=== PATIENT | female | born 1990 | race American Indian/Alaskan Native ===

== ENCOUNTER 2017-07-18 23:54 | Emergency (ER) | payer MEDICARE, MEDICAID ==
[2017-07-19] MEDS ORDERED: Lactated Ringer's 1,000 ML IV ONE (00:26)
[2017-07-19] MEDS ORDERED: Dextrose 5%/Lactated Ringer's 1,000 ML IV SCH (00:45)
[2017-07-19 00:54] LABS: RBC URINE 1 /hpf (0-3); URINE BILIRUBIN NEGATIVE (NEGATIVE); URINE BLOOD NEGATIVE (NEGATIVE); URINE COLOR Yellow (YELLOW); URINE GLUCOSE (UA) NORMAL (Normal); URINE KETONE TRACE mg/dL (NEGATIVE); URINE LEUKOCYTE ESTERASE NEG Leu/uL (Negative); URINE PROTEIN NEGATIVE (NEGATIVE); URINE UROBILINOGEN NORMAL mg/dL (0.2-1.0); WBC URINE 1 /hpf (0-5)
--- NOTE | 2017-07-19 02:13 | OBHP ---
Datetime: 07/19/2017 00:06 IP Adm Impression: Term, intrauterine IP Chief Complaint Other: Previous section IP Admit Plan: Observation/Evaluation Admit Comment, IP Provider: 26 yo , LMP unsure, SWAPNA 08/10/17, per patient by an ultrasound at 31 weeks, EGA 36w 6d, previous and insufficient care, c/o abdominal pain, "contracti ons" since 1430 hours, while picking up her son. Took this long to come in for evaluatoin because "I had a family emergency to deal with". (+) AFM; denies LOF, VB. 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 Denies STIs PMH: denies PSH: C/S NKDA Meds: PNV - QD Soc Hx: denies illicit drug, tobacco or EtOH use. Lives in [place] with her significant othe r/FOB; tonight at his sister's house, due to his current job. Unemployed. P.E.: as above. Small, inNAD; anxious. POssible metal limitation. Awake, alert, oriented to time, person and place Assessment: 26 yo P1, prevoius C/S, insufficient care - R/O laobr; R/O UTI. CAtegory 1 tr acing . Clinically stable. Plan: 1) U/A 2) UDS Addendum: 0207 hours - S/P 2 litres IVFs: patient states she feel better; abdominal pain "better: - V.E.- no cervical change - U/A/ esentially negative; S.G> 1.016; hazy Assessment: 26 yo P1, previous C/S; not in labor. Insufficient care. Has orange folder fr [facility] - limited data. labs reviewed - negative thus far. No ultrasound report. States has appointment for Tuesday07/24/17. Asked to contact clinic in am to verify next appointment; should be this week. Plan: 1) discharge home 2) reviewed S/S labor. Pelvic Type - PN: Adequate Extremities - PN: Normal Abdomen - PN: Normal Back - PN: Normal Breast - PN: Not Done Lungs - PN: Normal Heart - PN: Normal Thyroid - PN: Not Done Neurologic - PN: Normal HEENT - PN: Normal General - PN: Normal Membranes, Provider: Intact Contraction Comments Provider: 1-2 minutes Comments, ACOG Physical Exam: Abdomen: Gravid. Firm with contractions; otherwise, soft. Healed Pfann enstiel scar with mild keloid changes. Fundal height 37 cm All other systems reviewed and are negative Gestation - Est Wks by US: 36w 6d IP Hx Assessment: No Care IP Chief Complaint: Uterine contractions Dilatation, Provider: 0 Effacement, Provider: 25 Station, Provider: high Genitourinary Exam: Normal DTRs - PN: Not Done
[2017-07-19 06:34] VITALS: BP 127/89; PULSE 105; RESP 20; TEMP 98.4
== END 2017-07-19 02:20 | disposition home or self-care (01) ==
LOC: EDBD 23:54 → C.EROB 23:54
DX: O75.89 Other specified complications of labor and delivery (principal); Z3A.36 36 weeks gestation of pregnancy
CPT/HCPCS: 72HRC; 99283

== ENCOUNTER 2017-07-19 16:37 | Inpatient (IN) | payer MEDICARE, MEDICAID ==
[2017-07-19 17:17] VITALS: BMI 23.2
[2017-07-19] MEDS ORDERED: cefOXitin IV 2 gm in Dextrose 2 GM/50 ML BAG IVPB ONE ×2 (17:17→18:22)
[2017-07-19] MEDS ORDERED: Lactated Ringer's 1,000 ML IV SCH (17:30)
[2017-07-19] MEDS ORDERED: Sodium Citrate/Citric Acid 15 ml Sol PO ONE (18:07)
[2017-07-19 18:10] LABS: BASO % 0.4 % (0.0-2.0); EOS % 0.1 % (0.0-4.0); HEMATOCRIT 45.4 % (34.0-47.0); LYMPH # 0.8 K/uL (1.0-4.3); LYMPH % 9.7 % (20.0-40.0); MEAN CELL VOLUME 87.5 fL (81.0-99.0); MEAN CORPUSCULAR HEMOGLOBIN 28.4 pg (27.0-31.0); MEAN CORPUSCULAR HGB CONC 32.4 g/dL (33.0-37.0); MEAN PLATELET VOLUME 11.4 fL (7.2-11.7); MONO # 0.4 K/uL (0.0-0.8); NRBC % 0.1 % (0.0-2.0); PLATELET COUNT 144 K/uL (130-400); RED CELL DISTRIBUTION WIDTH 13.6 % (11.5-14.5); WHITE BLOOD COUNT 8.1 K/uL (4.8-10.8)
--- NOTE | 2017-07-19 18:11 | OBHP ---
Datetime: 07/19/2017 17:56 IP Adm Impression: Term, intrauterine IP Adm Impression Other: previous csection IP Admit Plan: Admit to unit; Initiate Section protocol Admit Comment, IP Provider: chief complaint-contractions HPI 26 y/o at 38 weeks and 3 days by ultrasound done at 34 weeks as per records docu mentation here with c/o contractions.patient states that she had contractions which started at 5 pm y .she was seen in [place] and discharged home.patient states that the contractions got stronger and hence she returned back to clinic and was told to go to hospital. (+) AFM; denies LOF, VB. lasthad sexual intercourse at beginning of "8 months ago!" Patient states that she is from [facility] but moved to [place].had a baby in [place] last ear .now wants to settle in [place] and hence she trasnferreed care from [facility] in [place] to [facility] in [place].she has not been able to get insurance or medicaid as she does not have picture id cousre -limited care; ultrasound done at 34 weeks as per recorsd but no report a vailable.started care at [facility] at 28 weeks; GBS positive; no 1 hour 50 gram glucola nicolas ilable P Ob: 08/10/16, male, 5lb 3oz at 37 weeks; "placenta was low"; [facility] 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 Denies STIs PMH: denies PSH: C/S NKDA Meds: PNV - QD Soc Hx: denies illicit drug, tobacco or EtOH use. Lives in [place] with her significant othe r/FOB; tonight at his sister's house, due to his current job. Unemployed. Physical exam see exam section A/P 26 y/o at 38.3 wga with c/o contractions.limited care.no ultrasound report avail able.No pic id available with patient. -admit -routine labs. -monitor closely -prep for csection Pelvic Type - PN: Adequate Extremities - PN: Normal Abdomen - PN: Normal Back - PN: Normal Lungs - PN: Normal Heart - PN: Normal Neurologic - PN: Normal General - PN: Normal Contraction Comments Provider: irregular IP Hx Assessment: The History has been Reviewed and is Current EGA AdmitDate IP: 38.3 Vital Signs Provider: Reviewed IP Chief Complaint: Uterine contractions FHR Category Provider Fetus A: Category I Dilatation, Provider: 1-2 Effacement, Provider: 70 Station, Provider: -2 Genitourinary Exam: Normal DTRs - PN: Normal
--- NOTE | 2017-07-19 18:14 | OBADHP ---
Datetime: 07/19/2017 17:56 IP Adm Impression Other: previous csection Admit Comment, IP Provider: chief complaint-contractions HPI 26 y/o at 38 weeks and 3 days by ultrasound done at 34 weeks as per records docu mentation here with c/o contractions.patient states that she had contractions which started at 5 pm y day.she was seen in [place] and discharged home.patient states that the contractions got stronger and hence she returned back to clinic and was told to go to hospital. (+) AFM; denies YESSENIA JAMES. lasthad sexual intercourse at beginning of "8 months ago!" Patient states that she is from [facility] but moved to [place].had a baby [place] last ear .now wants to settle in [place] and hence she trasnferreed care 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 Denies STIs PMH: denies PSH: C/S NKDA Meds: PNV - QD Soc Hx: denies illicit drug, tobacco or EtOH use. Lives in [place] with her significant othe r/FOB; tonight at his sister's house, due to his current job. Unemployed. Physical exam see exam section A/P 26 y/o at 38.3 wga with c/o contractions.limited care.no ultrasound report avail able.No pic id available with patient. -admit -routine labs. -monitor closely -prep for csection Pelvic Type - PN: Adequate Extremities - PN: Normal Abdomen - PN: Normal Back - PN: Normal Lungs - PN: Normal Heart - PN: Normal Neurologic - PN: Normal General - PN: Normal Contraction Comments Provider: irregular IP Hx Assessment: The History has been Reviewed and is Current Vital Signs Provider: Reviewed IP Chief Complaint: Uterine contractions FHR Category Provider Fetus A: Category I Dilatation, Provider: 1-2 Effacement, Provider: 70 Station, Provider: -2 Genitourinary Exam: Normal DTRs - PN: Normal EGA AdmitDate IP: 38.3 IP Adm Impression: Term, intrauterine IP Admit Plan: Admit to unit; Initiate Section protocol Datetime: 07/19/2017 00:06 IP Chief Complaint Other: Previous section Breast - PN: Not Done Thyroid - PN: Not Done HEENT - PN: Normal Membranes, Provider: Intact Comments, ACOG Physical Exam: Abdomen: Gravid. Firm with contractions; otherwise, soft. Healed Pfann enstiel scar with mild keloid changes. Fundal height 37 cm All other systems reviewed and are negative Gestation - Est Wks by US: 36w 6d
[2017-07-19 18:19] LABS: RBC URINE < 1 /hpf (0-3); TRANSITIONAL EPITHIAL < 1 /hpf (0-3); URINE BILIRUBIN NEGATIVE (NEGATIVE); URINE BLOOD NEGATIVE (NEGATIVE); URINE COLOR Yellow (YELLOW); URINE GLUCOSE (UA) NORMAL (Normal); URINE KETONE 2+ mg/dL (NEGATIVE); URINE LEUKOCYTE ESTERASE NEG Leu/uL (Negative); URINE PROTEIN NEGATIVE (NEGATIVE); URINE UROBILINOGEN NORMAL mg/dL (0.2-1.0); WBC URINE 2 /hpf (0-5)
[2017-07-19] MEDS ORDERED: Midazolam 2 MG/2 ML VIAL ONE ×2 (18:21→19:49)
[2017-07-19] MEDS ORDERED: Morphine 1 mg/ml preservative-free Inj(Duramorph) ONE (18:21)
[2017-07-19] MEDS ORDERED: Oxytocin 20 units in LR 2,000 ML IV ONE (18:22)
[2017-07-19] MEDS ORDERED: Sodium Citrate/Citric Acid 15 ml Sol ONE (18:22)
[2017-07-19 18:25] LABS: CHLORIDE 103 mmol/L (98-107); POTASSIUM 3.9 mmol/L (3.6-5.2); SODIUM 139 mmol/L (132-148)
[2017-07-19 18:28] LABS: CALCIUM 10.2 mg/dl (8.6-10.4); GLUCOSE,RANDOM 85 mg/dL (65-105)
[2017-07-19 18:55] LABS: NEUTROPHIL 90 % (50-75); TOTAL CELLS COUNTED 100
[2017-07-19 18:56] LABS: ALKALINE PHOSPHATASE 162 U/L (38-126); ALT/SGPT 23 U/L (9-52); AST/SGOT 27 U/L (14-36); BILIRUBIN,TOTAL 0.8 mg/dL (0.2-1.3); BLOOD UREA NITROGEN 5 mg/dL (7-17); CARBON DIOXIDE 19 mmol/L (22-30); GFR AFRICAN-AMERICAN > 60; TOTAL PROTEIN 7.6 g/dL (6.3-8.3)
[2017-07-19] MEDS ORDERED: ePHEDrine 50 mg/ml Inj ONE (19:11)
[2017-07-19] MEDS ORDERED: DiphenhydrAMINE 50 mg/ml Inj IVP PRN (20:10)
[2017-07-19] MEDS ORDERED: Oxycodone/Acetaminophen 5/325 mg Tab PO PRN ×2 (21:23)
--- NOTE | 2017-07-19 22:27 | OBDS ---
DELIVERY PERSONNEL Delivery Doctor: Brittany Delgado MD Scrub Nurse: Latosha Ballard OBT Operations Officer Afloat: Grant Spivey RN Anesthesiologist: Johny Lord MD MATERNAL INFORMATION Delivery Anesthesia: Spinal Medications in Delivery: Pitocin Estimated Blood Loss (ml): 800 Placenta Cultured: Yes Maternal Complications: Other Other Maternal Complications: RN Comments: live baby boy born via repeat c/section with 9_9 Provider Comments: repeat csection done ebl 800cc apgasr 9/9 at 1 and 5 min of life LABOR SUMMARY EDC: 07/30/2017 00:00 No. Babies in Womb: 1 Attempted: No LABOR INFORMATION Reason for Induction: Not Applicable Group B Beta Strep: Positive Steroids Given: None Reason Steroids Not Administered: Not Applicable STAGES OF LABOR Stage 3 hrs: 0 Stage 3 min: 1 VAGINAL DELIVERY Episiotomy: None Laceration Extension: N/A Laceration Type: None CSECTION DELIVERY Primary Indication: Repeat Elective Secondary Indication: in labor CSection Urgency: Emergency CSection Incidence: Repeat Labor: No Labor Elective: Elective CSection Incision: Lower Uterine Transverse Uterine Closure: Single-layer closure BABY A INFORMATION Delivery Date/Time: 07/19/2017 19:13 Method of Delivery: Born in Route : No : N/A Forceps: N/A Vacuum Extraction: N/A Shoulder Dystocia : No SHOULDER DYSTOCIA BABY A Delivery Date/Time: 07/19/2017 19:13 PRESENTATION/POSITION BABY A Presentation: Cephalic Cephalic Presentation: Vertex Breech Presentation: N/A PLACENTA INFORMATION BABY A Placenta Delivery Time : 07/19/2017 19:14 Placenta Method of Delivery: Manual Removal Placenta Status: Delivered SCORES BABY A Heart Rate 1 min: >100 bpm Resp Effort 1 min: Good Cry Reflex Irritability 1 min: Cough or Sneeze or Pulls Away Muscle Tone 1 min: Active Motion Color 1 min: Body [place], Extremities Blue SCORE 1 MIN: 9 Heart Rate 5 min: >100 bpm Resp Effort 5 min: Good Cry Reflex Irritability 5 min: Cough or Sneeze or Pulls Away Muscle Tone 5 min: Active Motion Color 5 min: Body [place], Extremities Blue SCORE 5 MIN: 9 INFANT INFORMATION BABY A Gestational Age at Delivery: 38.3 Gestational Status: Term Outcome : Liveborn Infant Condition : Stable Infant Sex: Male IDENTIFICATION/MEDS BABY A ID Band Number: [id number] ID Band Location: Left Leg; Left Arm Sensor Applied: Yes Sensor Number: [id number] Sensor Location : Cord Clamp WEIGHT/LENGTH BABY A Birthweight (gms): 2625 Weight (lb): 5 Weight (oz): 13 Length Inches: 18.50 Infant Length cms: 47.0 CORD INFORMATION BABY A No. Cord Vessels: 3 Nuchal Cord : Around Neck x2, Loose Cord Blood Taken: Yes Suction: Mouth; Nose ASSESSMENT BABY A Complications: None Physical Findings at Delivery: Within Normal Limits Infant Respirations: Appears Normal Senior Caregiver/ALS Called : No Care By: jolene Transferred To: Remains with Mother
[2017-07-20] MEDS: cefOXitin IV 2 gm in Dextrose 2 GM/50 ML BAG IVPB SCH ×3 (03:59→20:00)
--- NOTE | 2017-07-20 05:22 | OP ---
DATE OF PROCEDURE: 07/19/2017 PREOPERATIVE DIAGNOSES: Term intrauterine with history of previous section and labor. POSTOPERATIVE DIAGNOSES: Term intrauterine with history of previous section and labor. PROCEDURE PERFORMED: Repeat lower transfer section. SURGEON: Gurdeep Delgado MD PLANT OPERATIONS COORDINATOR: Dr. Jones White. Please note that the procedure required surgical technology instructor to assist with entry into the abdominal cavity, to assist with the dissection of the tissues, to assist with the delivery of the infant and assist with the closure of the abdominal wall. The surgical technology instructor was present and scrubbed for the entire duration of the procedure. TYPE OF ANESTHESIA: Spinal. ANESTHESIOLOGIST: Dr. Hinson. COMPLICATIONS: None. FINDINGS: A male infant in vertex presentation, nuchal x2 around neck tight. Normal-appearing ovaries bilaterally. Right fallopian tube being densely adhered to the lower uterine segment. Adhesions between the right side of the uterus and the right pelvic side wall. the Apgars were 9 at one minute and 9 at five minutes of life. EBL 800CC PROCEDURE IN DETAIL: After informed consent was obtained, the patient was taken to the operating room, where spinal anesthesia was administered by the anesthesia team. She was thereafter placed in dorsal supine position with a leftward tilt. The Taylor catheter was confirmed to be draining clear urine. She was prepped and draped in the usual sterile manner. The previous Pfannenstiel scar was removed with the help of the scalpel and incision was carried down to the underlying layer of the fascia with the help of the Bovie. The fascia was then incised in the midline and the incision was extended laterally with the help of Bovie as well. The inferior aspect of the fascial incision and grasped with Derek clamp, elevated, and the underlying rectus muscles dissected off. Attention was then turned to the superior aspect of the fascial incision, which in a similar fashion was grasped with Derek clamp, elevated, and the underlying rectus muscles dissected off. The rectus muscles were then tented with Allis clamps and sharply in the midline with help of the scalpel. The peritoneum was after picked up with hemostatic clamps and entered sharply with Metzenbaum scissors. The peritoneum incision was extended superiorly and inferiorly with good visualization of bladder. On entry into the abdominal cavity, it was noted that there was adhesions between the uterus and the right pelvic sidewall. These were tiny filmy adhesions, which were sharply dissected down. Dense adhesions were noted to between the lower uterine segment and the right pelvic sidewall. These adhesions were double clamped and cut and suture ligated. The low uterine segment was noted to be extremely thin. At this point, paying careful attention to the position of the bladder, transverse incision was made over the lower uterine segment with the help of a scalpel. The hysterotomy was stretched bluntly. The membranes were then ruptured and the 's head was then delivered atraumatically. Nuchal x2 around neck tight was noted. These were reduced and then after the body and The shoulders were delivered, the cord was then clamped and cut. The nose and the mouth were suctioned at the delivery of the head, and the cord after was then clamped and cut. The infant was handed over to the waiting media professional. The segment of cord was taken for cord blood, pH. Cord blood was collected, and the placenta was then manually removed. The uterus was exteriorized and cleared off all clots and debris. The uterine incision was repaired with 0 Monocryl in a running locked fashion. Please note that prior to the closure of the hysterotomy, a sharp dissection was done to separate the bladder from the lower uterine segment as well as to separate the portion of the fallopian tube, which was densely adhered to the right edge angle of the hysterectomy. As stated earlier, the hysterotomy was closed with 0 Monocryl in a running locked fashion. Bleeding points were noted in the mid section of the hysterectomy as well as towards the right portion of the hysterotomy and this was suture ligated using 2-0 Monocryl. At this point, adequate hemostasis was noted from the hysterotomy repair site. The area of the dissection of the fallopian tube and the uterus, especially towards the right angle of the hysterotomy was oozy, and the bleeding points were then after cauterized. Adequate hemostasis was noted. The pelvis and the gutters were irrigated and suctioned. The uterus was then returned to the patient's abdomen. The right side of the hysterorrhaphy repair was very thin and bleeding was noted and this was suture ligated with 2-0 Monocryl. FloSeal was placed over the uterine incision repair site. The peritoneum was closed with 2-0 Polysorb in a running fashion. The muscle layer was reapproximated with 2-0 Polysorb in a running fashion. The facia was closed with 0 Vicryl in a running fashion. The subcutaneous tissue was reapproximated with 2-0 Polysorb in a continuous manner. The manan were then applied over the skin for the skin closure. The sponge, lap, needle, and instrument counts were correct at the end of the procedure as reported to me. The patient was thereafter cleaned, dressing applied, and taken to the recovery room in stable condition. Gurdeep Delgado MD [place]
--- NOTE | 2017-07-20 07:16 | OBPPN ---
Datetime: 07/20/2017 07:13 PP Pain Prov: Within normal limits PP Nausea Prov: Denies PP Flatus Prov: No PP Abdomen/Uterus Prov: Normal PP Lochia Prov: Normal PP Extremities Prov: Normal PP C/S Incision Prov: Normal PP Comments Phys Exam Prov: fudus below umblicus ext mild edema,no calf ten dessing clean and dry PP Impression Prov: Normal progression PP Plan Prov: Continue present management PP Progress Note Prov: pt was seen at bed side, pain under control,no n/v, waiting to void,min lochi a, flatus - pod#1s/p c/s cbc advance deit as tolerated cont pain mamagement cont post op care encourage ambulation Vital Signs Provider PP: Reviewed
[2017-07-20 07:37] LABS: EOS % 0.1 % (0.0-4.0); MONO # 0.9 K/uL (0.0-0.8)
[2017-07-20 07:49] LABS: BASO % 0.3 % (0.0-2.0); HEMATOCRIT 38.4 % (34.0-47.0); LYMPH # 0.6 K/uL (1.0-4.3); LYMPH % 6.9 % (20.0-40.0); MEAN CELL VOLUME 87.1 fL (81.0-99.0); MEAN CORPUSCULAR HEMOGLOBIN 28.7 pg (27.0-31.0); MEAN PLATELET VOLUME 11.4 fL (7.2-11.7); MONO % 11.1 % (0.0-10.0); RED CELL DISTRIBUTION WIDTH 13.7 % (11.5-14.5); WHITE BLOOD COUNT 8.4 K/uL (4.8-10.8)
[2017-07-20 07:53] LABS: PLATELET COUNT 122 K/uL (130-400)
[2017-07-20 08:45] LABS: NEUTROPHIL 87 % (50-75); TOTAL CELLS COUNTED 100
[2017-07-20] MEDS: Simethicone 80 mg Chewtab PO SCH ×4 (09:36→22:14)
[2017-07-21 08:35] VITALS: RESP 20
[2017-07-21] MEDS: Simethicone 80 mg Chewtab PO SCH ×4 (09:58→23:24)
[2017-07-21] MEDS ORDERED: POLYETHYLENE GLYCOL 3350 17 GM/Dose PACKET PO SCH (11:00)
--- NOTE | 2017-07-21 23:47 | OBPPN ---
Datetime: 07/21/2017 23:41 PP Pain Prov: Within normal limits PP Nausea Prov: Denies PP Flatus Prov: Yes PP BM Prov: No PP Breasts Prov: Normal PP Heart Prov: Normal PP Lungs Prov: Normal PP Abdomen/Uterus Prov: Normal PP Lochia Prov: Normal PP Vulva/Perineum Prov: Not Done PP CVA Tenderness Prov: Normal PP Extremities Prov: Normal PP C/S Incision Prov: Normal PP Progress Prov: Normal PP Comments Phys Exam Prov: Abdomen: Soft. Non distended. (+) BS. Incision with manan - clean, dry , intact. fundus firm, mobile, non tender at umbilicus. Mild lochia rubra Extremities: no calf tenderness All other systems reviewed and are negative PP Impression Prov: Normal progression PP Plan Prov: Continue present management PP Progress Note Prov: Patient seen and evaluated earlier this morning; received in bed in room 453. Denies nause, vomiting. Breast- and bottlefeeding P.E.: as above. Small in NAD. Awake, alert. oriented to time, person and place. Pleasant and coope rative. - POD#1 H/H 12.7/38.4 Assessment: POD#2, 26 y.o. P2, S/P repeat LTCS at 37 weeks; poor care. Afebrile, vital signs stable. 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
[2017-07-22 08:16] VITALS: BP 108/66; PULSE 70; TEMP 97.7; O2SAT 100
[2017-07-22] MEDS: Simethicone 80 mg Chewtab PO SCH ×2 (10:15→14:30)
--- NOTE | 2017-07-22 11:33 | OBPPN ---
Datetime: 07/22/2017 11:30 PP Pain Prov: Within normal limits PP Nausea Prov: Denies PP Flatus Prov: Yes PP BM Prov: Yes PP Breasts Prov: Normal PP Heart Prov: Normal PP Lungs Prov: Normal PP Abdomen/Uterus Prov: Normal PP Lochia Prov: Normal PP Vulva/Perineum Prov: Normal PP CVA Tenderness Prov: Normal PP Extremities Prov: Normal PP C/S Incision Prov: Normal PP Progress Prov: Normal PP Impression Prov: Normal progression PP Plan Prov: Continue present management PP Plan Other Prov: f/u social work conslut PP Progress Note Prov: pt seen and examiend and reports pian is controlled with medicatoin. pt is am bauting out of bed, voiding, passing flatus, bresat feeding, denies any lighthtenadd, dizzyness, CP, SOB. VSS PE see above GEN NAD AANo x 3 REP: CTAB/l CVS: RRR, +S1/S2 BREAST Non tender, non enrogrbe b/l ABD: soft, NT/ND, +BS, no guaridng, no reboudn tendneres,s no rigidy Fundus: Firm, below level of umbiucs INCSION C/D/I healing well, manan intact V:E miniml lochai non foul slemming EX:T no calf tendnress b/l, negative homans sign A/P s/p RLTCS POD #3 doing well 1. f/u SOcial work: imited care 2. antiicapd d/c today 3. RTO / clinci witin 1 week for staple removal 4. Precautions given Vital Signs Provider PP: Reviewed; Within Normal Limits
--- NOTE | 2017-07-22 11:37 | OBDCSUM ---
Datetime: 07/22/2017 11:33 Follow up at, Provider: Office, clinic Discharge Diagnosis, Provider: Term Delivered Discharge Time: 07/22/2017 13:00 Follow up in weeks, Provider: no later than 1 week Disch Activity Restrictions: No sexual activity; Nothing in vagina - [place], tampons, douche Discharge Comment, Provider: Precautions given. If fever, chlils, nause, vomiting. CP, SOB, heavy bl eeding more than 2 pads/ hour, lightheadness, dizzynss go to nearest er avdsied needs to go to clinic t oremoval manan within 1 week Contraception after Delivery: Not Planning to Use
== END 2017-07-22 16:15 | disposition home or self-care (01) | DRG 766 ==
LOC: C.EROB 16:37 → C.4D 17:17 → C.4M 23:35
PROVIDERS: ADMIT Student in an Organized Health Care Education/Training Program; ATTEND Student in an Organized Health Care Education/Training Program
PROC: 10D00Z1 Extraction of Products of Conception, Low, Open Approach (ICD-10-PCS; principal; 2017-07-19)
DX: O34.219 Maternal care for unspecified type scar from previous cesarean delivery (principal); D25.9 Leiomyoma of uterus, unspecified; Z3A.38 38 weeks gestation of pregnancy; O09.33 Supervision of pregnancy with insufficient antenatal care, third trimester; O99.820 Streptococcus B carrier state complicating pregnancy; O26.893 Other specified pregnancy related conditions, third trimester; L91.0 Hypertrophic scar; O69.1XX0 Labor and delivery complicated by cord around neck, with compression, not applicable or unspecified; O34.13 Maternal care for benign tumor of corpus uteri, third trimester; O99.89 Other specified diseases and conditions complicating pregnancy, childbirth and the puerperium; N73.6 Female pelvic peritoneal adhesions (postinfective); Z37.0 Single live birth